=== PATIENT | female | born 1990 | race Hispanic/Latino ===

== ENCOUNTER 2019-08-05 12:08 | Emergency (ER) | payer SELFPAY ==
[~2019-08-05] VITALS: Ht 157.5 cm; Wt 83.9 kg
--- NOTE | 2019-08-05 12:50 | Emergency Department Note ---
History of Present Illnes History of Present Illness History of Present Illness This is a 28 year old female . Onset (how long ago): day(s) (6) Past Medical/Family History Physician Review I have reviewed the patient's past medical and family history. Any updates have been documented here. Physical Exam Physical Exam CONSTITUTIONAL HENT EYES NECK PULMONARY CARDIOVASCULAR GASTROINTESTINAL GENITOURINARY SKIN MUSCULOSKELETAL NEUROLOGICAL PSYCHOLOGICAL Assessment & Plan Assessment & Plan Final Impression: (1) Berg's palsy CRESCENCIO MACIAS DO Aug 05, 2019 12:50
== END 2019-08-05 13:10 | disposition home or self-care (01) ==
LOC: ER 13:10
DX: G51.0 Bell's palsy (principal)
CPT/HCPCS: 99282